=== PATIENT | male | born 1960 | race Caucasian/White ===

== ENCOUNTER 2022-08-15 11:47 | Emergency (ER) | payer MEDICARE, SELFPAY ==
--- NOTE | 2022-08-15 11:47 | ED.SKABFB ---
HPI - Skin/Abscess/Foreign Bdy General Chief complaint: Extremity Problem,Nontraumatic Stated complaint: Skin Sore/Right Hand Time Seen by Provider: 08/15/22 11:48 Source: patient and RN notes reviewed History of Present Illness HPI narrative: patient is a 62-year-old male who presents to urgent care with complaints of a redness and swelling to the right 3rd knuckle. Patient states he stuck his hand in a fan blade approximately 2 weeks ago and the redness seems to be worse. Patient denies any fevers, nausea or vomiting. No other acute complaints. No acute distress noted. Patient aware of the plan of care. Some parts of this dictation were generated by voice recognition software and may contain typographical and/or grammatical inaccuracies. Related Data Home Medications Medication Instructions Recorded Confirmed alendronate 70 mg tablet mg PO 08/15/22 08/15/22 amlodipine 5 mg tablet 5 mg PO DAILY 08/15/22 08/15/22 atorvastatin 40 mg tablet 40 mg PO DAILY 08/15/22 08/15/22 buprenorphine 8 mg-naloxone 2 mg See Rx Instructions .Route .COMPLEX 08/15/22 08/15/22 sublingual film celecoxib 200 mg capsule 200 mg PO DAILY 08/15/22 08/15/22 doxepin 10 mg capsule mg 08/15/22 duloxetine 30 mg capsule,delayed 30 mg PO DAILY 08/15/22 08/15/22 release furosemide 40 mg tablet 40 mg PO DAILY 08/15/22 08/15/22 metformin 500 mg tablet mg 08/15/22 metoprolol tartrate 50 mg tablet mg 08/15/22 potassium chloride 20 mEq 20 meq PO DAILY 08/15/22 08/15/22 tablet,extended release(part/cryst) Allergies Allergy/AdvReac Type Severity Reaction Status Date / Time No Known Allergies Allergy Unverified 08/15/22 12:10 Review of Systems Review of Systems: CONSTITUTIONAL: Denies fever, chills, or sweats. EYES: Denies visual changes, redness, or discharge. ENT: Denies rhinorrhea, congestion, sore throat, or otalgia. CARDIOVASCULAR: Denies chest pain, palpitations, or edema. RESPIRATORY: Denies cough or dyspnea. GASTROINTESTINAL: Denies abdominal pain, nausea, vomiting, or diarrhea. GENITOURINARY: Denies dysuria or hematuria. SKIN: Reports of redness and swelling over the 3rd digit of the right hand MUSCULOSKELETAL: Denies back pain, joint pain, or myalgia. NEUROLOGIC: Denies headache, numbness, or weakness. All other systems reviewed are negative, except as documented in HPI. [facility] Family History Family History (Updated 11/18/17 @ 14:22 by DOCTOR UNKNOWN) Mother Diabetes mellitus Other Cerebrovascular accident Depression Family history of congestive heart failure Social History Social History Smoking status: Never smoker Alcohol intake: never Comments At the time of my signature, I reviewed and agree with the nursing past medical, surgical, social, and family history. There is no relevant family history pertinent to the patient complaint. Exam Narrative: GENERAL: This is a well-nourished, well-developed patient, in no apparent distress. HEAD: normocephalic, atraumatic. EYES: PERRL. Sclera clear/white. Vision is grossly intact. EARS: External ears normal NOSE: External nose normal with no obvious nasal discharge, nares without redness, no rhinorrhea. THROAT: Mucous membranes moist NECK: Neck supple GASTROINTESTINAL: Abdomen soft, non-tender, nondistended. Bowel sounds are active. No hepato-splenomegaly, or palpable masses. No guarding. SKIN: fluctuant 2cm abscess over the MCP of the right 3rd digit with 5 cm surrounding erythema NEURO: awake, alert, and oriented to person, place and time. There were no obvious focal neurologic abnormalities. EXTREMITIES: No clubbing, cyanosis, or edema. Course Course Level of Care: Express Care Visit Vital Signs Vital signs: Vital Signs Temperature 98.1 F 08/15/22 12:06 Pulse Rate 60 08/15/22 12:06 Respiratory Rate 18 08/15/22 12:06 Blood Pressure 138/80 08/15/22 12:06 Pulse Oximetry 98 08/15/22 12:06 Temperature 98.1 F 08/15/22 12:06
[2022-08-15 12:06] VITALS: BP 138/80; PULSE 60; RESP 18; TEMP 36.7; O2SAT 98
== END 2022-08-15 12:20 | disposition home or self-care (01) ==
PROVIDERS: Emergency Provider Nurse Practitioner Family
DX: L02.511 Cutaneous abscess of right hand (principal); E78.00 Pure hypercholesterolemia, unspecified; I10 Essential (primary) hypertension; Z96.653 Presence of artificial knee joint, bilateral; E11.9 Type 2 diabetes mellitus without complications; Z79.84 Long term (current) use of oral hypoglycemic drugs
CPT/HCPCS: 99203; G0463

== ENCOUNTER 2024-08-19 12:30 | Outpatient (RCR) | payer MEDICARE, SELFPAY | END 2024-08-26 13:14 | disposition home or self-care (01) | LOC: ANHCPREHAB 12:30 | PROVIDERS: Visit Provider Internal Medicine Cardiovascular Disease | DX: I50.9 Heart failure, unspecified (principal); Z95.1 Presence of aortocoronary bypass graft | CPT/HCPCS: 93798 ==